=== PATIENT | female | born 1985 | race Two or more races ===

== ENCOUNTER 2021-07-15 09:21 | Emergency (ER) | payer OTHER ==
[~2021-07-15] VITALS: Ht 157.5 cm; Wt 73.0 kg
[2021-07-15 09:29] VITALS: BP 106/68
--- NOTE | 2021-07-15 09:51 | PHYS DOC ---
Past History Past Surgical History: No Surgical History General Adult EDM: Chief Complaint: LOWER EXT PAIN HPI: HPI: Patient is a 35-year-old female right knee pain post fall. Patient states that she did not have a syncopal episode but lost her balance and fell. She landed on her right knee. Has not been able to bear weight since secondary to pain. This occurred shortly prior to arrival. Review of Systems: Review of Systems: Constitutional: Denies fever Eyes: Denies change in visual acuity or eye pain HENT: Denies sore throat Respiratory: Denies shortness of breath Cardiovascular: Denies chest pain GI: Denies abd pain : Denies dysuria Musculoskeletal: Denies back injury Integument: Denies rash or skin lesions Neurologic: Denies headache, focal weakness or sensory changes All other systems were reviewed and found to be within normal limits, except as documented in this note. Allergies: Allergies: Allergies Coded Allergies Type Severity Reaction Last Updated Verified No Known Drug Allergies 07/15/21 No Physical Exam: PE: Constitutional: Well developed, well nourished, no acute distress, non-toxic appearance. HENT: Normocephalic, atraumatic, bilateral external ears normal, mucosa moist, nose normal. Eyes: EOMI, conjunctiva normal, no discharge. Neck: Normal range of motion, supple, no stridor, no meningeal signs. Cardiovascular: Regular rate and rhythm Lungs & Thorax: Bilateral breath sounds clear to auscultation Abdomen: Soft, no tenderness or obvious masses Skin: Warm, dry, no erythema, no rash. Extremities: Tenderness present over medial aspect of the tibia proximally, just below the knee joint. Right side no swelling. No cyanosis, no clubbing, ROM intact, no edema. Neurologic: Alert and oriented, normal motor function, normal sensory function, no focal deficits noted. Psychologic: Affect normal, judgement normal, mood normal. Current Patient Data: Vital Signs: Vital Signs Date Time Temp Pulse Resp B/P (MAP) Pulse Ox O2 Delivery O2 Flow Rate FiO2 07/15/21 09:29 98.0 89 16 106/68 (81) 99 Room Air EKG: EKG: [] Radiology/Procedures: Radiology/Procedures: [] Impressions: PATIENT: DORIS TELLO ACCOUNT: [id number] : 1985 LOCATION: ER AGE: 35 SEX: F EXAM STATUS: REG ER ORD. PHYSICIAN: SHELLEY SCALES MD REASON: fall, pain\ PROCEDURE: KNEE RIGHT 3V Exam Date: 07/15/2021 9:55 AM XR KNEE 3 VIEWS_RT Indication: Pain. Reason: fall, pain / Spl. Instructions: / History: . FINDINGS/ IMPRESSION: No acute fracture or dislocation. Alignment and joint spaces are maintained. The soft tissues are within normal limits. Electronically signed by: Danny Khanna MD (07/15/2021 10:07 AM) [id number] DICTATED AND SIGNED BY: DANNY KHANNA MD DATE: 07/15/21 1007 CC: PCP,VINCENT; SHELLEY SCALES MD ~ Heart Score: C/O Chest Pain: No Risk Factors: Risk Factors: DM, Current or recent (<one month) smoker, HTN, HLP, family history of CAD, obesity. Risk Scores: Score 0 - 3: 2.5% MACE over next 6 weeks - Discharge Home Score 4 - 6: 20.3% MACE over next 6 weeks - Admit for Clinical Observation Score 7 - 10: 72.7% MACE over next 6 weeks - Early Invasive Strategies Course & Med Decision Making: Course & Med Decision Making Pertinent Labs and Imaging studies reviewed. (See chart for details) [] This is a 35-year-old female with knee pain post fall. X-rays negative for evidence of fracture, subluxation or dislocation. Given the patient's degree of pain we will give her crutches and have her weight-bear minimally until her pain improves. She flies back to [place] in a couple of days and will follow-up with her primary care physician, she is stable for discharge at this time. Rj Disclaimer: Rj Disclaimer: This electronic medical record was generated, in whole or in part, using a voice recognition dictation system. Departure Departure: Impression: Primary Impression: Knee sprain Disposition: HOME / SELF CARE / HOMELESS Condition: STABLE Referrals: PCPVINCENT (PCP) Patient Instructions: Knee Sprain Scripts Tramadol Hcl (TRAMADOL HCL) 50 Mg Tablet 50 MG PO PRN Q6HRS PRN for PAIN, #20 TAB Prov: SHELLEY SCALES MD 07/15/21 SHELLEY SCALES MD Jul 15, 2021 09:51
[2021-07-15] MEDS: HYDROcodone/APAP 5/325MG 1 TAB TABLET PO ONE (10:04)
[2021-07-15] MEDS: ONDANSETRON ODT 4 MG TAB.RAPDIS PO ONE (10:04)
--- NOTE | 2021-07-15 10:10 | RAD ---
Exam Date: 07/15/2021 9:55 AM XR KNEE 3 VIEWS_RT Indication: Pain. Reason: fall, pain / Spl. Instructions: / History: . FINDINGS/ IMPRESSION: No acute fracture or dislocation. Alignment and joint spaces are maintained. The soft tissues are w ithin normal limits. Electronically signed by: Rolo Khanna MD (07/15/2021 10:07 AM) [id number]
[2021-07-15] MEDS ORDERED: TRAM50TA PO (10:40)
== END 2021-07-15 10:56 | disposition home or self-care (01) ==
LOC: ER 09:21
DX: S83.91XA Sprain of unspecified site of right knee, initial encounter (principal); W18.39XA Other fall on same level, initial encounter; Y93.89 Activity, other specified; Y92.89 Other specified places as the place of occurrence of the external cause; Y99.8 Other external cause status
CPT/HCPCS: 73562; 99283; Q0162